=== PATIENT | female | born 1960 | race American Indian/Alaskan Native ===

== ENCOUNTER → 2016-12-18 | Outpatient (CLI) | payer BC, OTHER | END | disposition home or self-care (01) | LOC: PETCFH 08:47 | PROVIDERS: ATTEND Internal Medicine Hematology & Oncology | DX: C50.812 Malignant neoplasm of overlapping sites of left female breast (principal); M89.8X8 Other specified disorders of bone, other site | CPT/HCPCS: 78306; A9503 ==

== ENCOUNTER → 2016-12-18 | Outpatient (CLI) | payer BC, OTHER ==
[~2016-12-18] MED LIST: OMNIPAQUE 350 MG/ML, 100ML BOTTLE ONE
== END | disposition home or self-care (01) ==
LOC: CFH 08:57
PROVIDERS: ATTEND Internal Medicine Hematology & Oncology
DX: C50.812 Malignant neoplasm of overlapping sites of left female breast (principal); J98.4 Other disorders of lung; M48.54XA Collapsed vertebra, not elsewhere classified, thoracic region, initial encounter for fracture; X58.XXXA Exposure to other specified factors, initial encounter; Y93.89 Activity, other specified; Y92.89 Other specified places as the place of occurrence of the external cause; Y99.8 Other external cause status; Z90.12 Acquired absence of left breast and nipple; Z85.3 Personal history of malignant neoplasm of breast
CPT/HCPCS: 71260; 74177; Q9967

== ENCOUNTER → 2017-04-30 | Outpatient (CLI) | payer BC, OTHER | END | disposition home or self-care (01) | LOC: PETCFH 08:25 | PROVIDERS: ATTEND Internal Medicine Hematology & Oncology | DX: C50.812 Malignant neoplasm of overlapping sites of left female breast (principal) | CPT/HCPCS: 78306; A9503 ==

== ENCOUNTER → 2017-04-30 | Outpatient (CLI) | payer BC | END | disposition home or self-care (01) | LOC: CFH 08:34 | PROVIDERS: ATTEND Internal Medicine Hematology & Oncology | DX: M48.54XA Collapsed vertebra, not elsewhere classified, thoracic region, initial encounter for fracture (principal); M89.9 Disorder of bone, unspecified; C50.812 Malignant neoplasm of overlapping sites of left female breast | CPT/HCPCS: 71260; 74177 ==

== ENCOUNTER → 2017-09-05 | Outpatient (CLI) | payer BC, OTHER | END | disposition home or self-care (01) | LOC: CFH 11:23 | PROVIDERS: ATTEND Internal Medicine Hematology & Oncology | DX: C79.51 Secondary malignant neoplasm of bone (principal); M48.54XD Collapsed vertebra, not elsewhere classified, thoracic region, subsequent encounter for fracture with routine healing; C50.812 Malignant neoplasm of overlapping sites of left female breast; Z90.12 Acquired absence of left breast and nipple | CPT/HCPCS: 71260; 74177; Q9967 ==

== ENCOUNTER → 2017-09-05 | Outpatient (CLI) | payer BC, OTHER | END | disposition home or self-care (01) | LOC: PETCFH 11:31 | PROVIDERS: ATTEND Internal Medicine Hematology & Oncology | DX: C50.812 Malignant neoplasm of overlapping sites of left female breast (principal) | CPT/HCPCS: 78306; A9503 ==

== ENCOUNTER → 2018-01-01 | Outpatient (CLI) | payer OTHER | END | disposition home or self-care (01) | LOC: PETCFH 08:04 | PROVIDERS: ATTEND Internal Medicine Hematology & Oncology | DX: C50.812 Malignant neoplasm of overlapping sites of left female breast (principal) | CPT/HCPCS: 78306; A9503 ==

== ENCOUNTER → 2018-05-16 | Outpatient (CLI) | payer MEDICARE, OTHER ==
[~2018-05-16] MED LIST changes: +LETR2.5T PO; +PALB100C PO
== END | disposition home or self-care (01) ==
LOC: RAD 08:18
PROVIDERS: ATTEND Internal Medicine Hematology & Oncology
DX: D73.4 Cyst of spleen (principal); M43.24 Fusion of spine, thoracic region; M89.8X8 Other specified disorders of bone, other site; J98.4 Other disorders of lung; R59.9 Enlarged lymph nodes, unspecified; Z85.3 Personal history of malignant neoplasm of breast
CPT/HCPCS: 71260; 74177; 78306; A9503; Q9967

== ENCOUNTER → 2018-09-04 | Outpatient (CLI) | payer MEDICARE | END | disposition home or self-care (01) | LOC: CFH 12:32 | PROVIDERS: ATTEND Internal Medicine Hematology & Oncology | DX: G95.89 Other specified diseases of spinal cord (principal); M84.48XA Pathological fracture, other site, initial encounter for fracture | CPT/HCPCS: 71260; 74177; Q9967 ==

== ENCOUNTER → 2019-03-11 | Outpatient (CLI) | payer MEDICARE, OTHER ==
[~2019-03-11] VITALS: Ht 162.6 cm; Wt 57.9 kg
[~2019-03-11] MED LIST changes: +LEUPROLIDE 3.75MG SYRINGE KIT IM ONE; -OMNIPAQUE 350 MG/ML, 100ML BOTTLE ONE
[2019-03-11 11:30] VITALS: BP 110/72
== END | disposition home or self-care (01) ==
LOC: INFUSION 11:18
PROVIDERS: ATTEND Internal Medicine Hematology & Oncology
DX: Z51.11 Encounter for antineoplastic chemotherapy (principal); C50.912 Malignant neoplasm of unspecified site of left female breast; C79.51 Secondary malignant neoplasm of bone
CPT/HCPCS: 96402; J1950

== ENCOUNTER 2019-03-17 08:08 | Outpatient (CLI) | payer MEDICARE, OTHER ==
[~2019-03-17 08:08] MED LIST changes: -LEUPROLIDE 3.75MG SYRINGE KIT IM ONE
[2019-03-17] MEDS ORDERED: OMNIPAQUE 350 MG/ML, 100ML BOTTLE ONE (09:15)
== END 2019-03-17 23:59 | disposition home or self-care (01) ==
LOC: PETCFH 08:08
PROVIDERS: ATTEND Internal Medicine Hematology & Oncology
DX: C50.812 Malignant neoplasm of overlapping sites of left female breast (principal); G95.29 Other cord compression; M43.8X4 Other specified deforming dorsopathies, thoracic region; J84.10 Pulmonary fibrosis, unspecified; K76.0 Fatty (change of) liver, not elsewhere classified; G95.89 Other specified diseases of spinal cord; N32.89 Other specified disorders of bladder
CPT/HCPCS: 71260; 74177; 78306; A9503; Q9967

== ENCOUNTER 2019-04-17 13:31 | Outpatient (CLI) | payer MEDICARE, OTHER ==
[~2019-04-17] VITALS: Ht 162.6 cm; Wt 58.1 kg
== END 2019-04-17 23:59 | disposition home or self-care (01) ==
LOC: INFUSION 13:31
PROVIDERS: ATTEND Internal Medicine Hematology & Oncology
DX: Z51.11 Encounter for antineoplastic chemotherapy (principal); C79.51 Secondary malignant neoplasm of bone; C50.812 Malignant neoplasm of overlapping sites of left female breast
CPT/HCPCS: 36415; 36591; 80053; 85025; 86300; 96365; 96402; J1950; J3489

== ENCOUNTER 2019-06-12 10:25 | Outpatient (CLI) | payer MEDICARE, OTHER ==
[~2019-06-12] VITALS: Ht 162.6 cm; Wt 57.3 kg
[2019-06-12] MEDS ORDERED: LEUPROLIDE 3.75MG SYRINGE KIT IM ONE (11:00)
[2019-06-12 13:14] VITALS: BP 103/73
== END 2019-06-12 23:59 | disposition home or self-care (01) ==
LOC: INFUSION 10:25
PROVIDERS: ATTEND Internal Medicine Hematology & Oncology
DX: Z51.11 Encounter for antineoplastic chemotherapy (principal); C50.912 Malignant neoplasm of unspecified site of left female breast; C79.51 Secondary malignant neoplasm of bone
CPT/HCPCS: 96402; J1950; 96372

== ENCOUNTER 2019-07-07 14:08 | Outpatient (CLI) | payer MEDICARE, OTHER ==
[~2019-07-07] VITALS: Ht 162.6 cm; Wt 58.4 kg
[2019-07-07 13:28] LABS: BASOPHILS # (AUTO) 0.06 x10^3/uL (0-0.1); BASOPHILS % (AUTO) 2 % (0-1); EOSINOPHILS # (AUTO) 0.04 x10^3/uL (0-0.4); EOSINOPHILS % (AUTO) 1 % (1-7); LYMPHOCYTES % (AUTO) 32 % (22-44); MD NO; MEAN CORPUSCULAR HEMOGLOBIN 35.2 pg (27.0-34.8); MEAN CORPUSCULAR HGB CONC 33.6 g/dL (32.4-35.8); MEAN CORPUSCULAR VOLUME 104.9 fL (80-100); MEAN PLATELET VOLUME 7.6 fL (7.4-10.4); MONOCYTES # (AUTO) 0.18 x10^3/uL (0.2-0.8); MONOCYTES % (AUTO) 6 % (2-9); NEUTROPHILS # (AUTO) 1.86 x10^3/uL (1.8-6.8); NEUTROPHILS % (AUTO) 59 % (42-75); PLATELET COUNT 193 x10^3/uL (130-400); RED BLOOD COUNT 3.96 x10^6/uL (3.82-5.3); RED CELL DISTRIBUTION WIDTH 14.7 % (9.6-15.2)
[2019-07-07 13:33] LABS: ANION GAP 6 mmol/L (5-15); CALCIUM 9.3 mg/dL (8.5-10.1); CHLORIDE 109 mmol/L (98-107); CREATININE 0.77 mg/dL (0.55-1.02)
[2019-07-07 13:34] LABS: ALANINE AMINOTRANSFERASE 26 U/L (12-78); ALBUMIN 3.9 g/dL (3.4-5.0)
[2019-07-07 13:36] LABS: ALKALINE PHOSPHATASE 72 U/L (45-117); BILIRUBIN,TOTAL 0.3 mg/dL (0.2-1.0); TOTAL PROTEIN 7.1 g/dL (6.4-8.2)
[~2019-07-07 14:08] MED LIST changes: +LEUPROLIDE 3.75MG SYRINGE KIT IM ONE
[2019-07-07] MEDS ORDERED: ZOLEDRONIC ACID 4 MG in SODIUM CHLORIDE 0.9% 100 ML IV ONE (15:00)
[2019-07-07 15:47] VITALS: BP 127/87
== END 2019-07-07 23:59 | disposition home or self-care (01) ==
LOC: INFUSION 14:08
PROVIDERS: ATTEND Internal Medicine Hematology & Oncology
DX: C50.912 Malignant neoplasm of unspecified site of left female breast (principal); C79.51 Secondary malignant neoplasm of bone; Z87.891 Personal history of nicotine dependence
CPT/HCPCS: 36415; 36591; 80053; 83735; 84100; 85025; 96365; 96402; J1950; J3489; 96372

== ENCOUNTER 2019-07-31 15:21 | Outpatient (CLI) | payer MEDICARE, OTHER ==
[~2019-07-31] VITALS: Ht 162.6 cm; Wt 58.6 kg
[2019-07-31 11:18] VITALS: BP 119/75
== END 2019-07-31 23:59 | disposition home or self-care (01) ==
LOC: INFUSION 15:21
PROVIDERS: ATTEND Internal Medicine Hematology & Oncology
DX: Z51.11 Encounter for antineoplastic chemotherapy (principal); C50.912 Malignant neoplasm of unspecified site of left female breast; C79.51 Secondary malignant neoplasm of bone; Z87.891 Personal history of nicotine dependence
CPT/HCPCS: 96402; J1950

== ENCOUNTER → 2019-08-18 | Outpatient (CLI) | payer MEDICARE, OTHER ==
[~2019-08-18] MED LIST changes: -LEUPROLIDE 3.75MG SYRINGE KIT IM ONE; +OMNIPAQUE 350 MG/ML, 100ML BOTTLE ONE
[2019-08-18 12:07] LABS: CREATININE 0.87 mg/dL (0.55-1.02)
== END | disposition home or self-care (01) ==
LOC: RAD 11:07
PROVIDERS: ATTEND Internal Medicine Hematology & Oncology
DX: C79.51 Secondary malignant neoplasm of bone (principal); C50.812 Malignant neoplasm of overlapping sites of left female breast; J94.1 Fibrothorax; Z87.891 Personal history of nicotine dependence
CPT/HCPCS: 36415; 71260; 74177; 78306; 82565; A9503; Q9967

== ENCOUNTER → 2019-08-20 | Outpatient (CLI) | payer MEDICARE, OTHER ==
[~2019-08-20] MED LIST changes: +GADOTERATE 7.5 MMOL/15 ML SYR ONE; -OMNIPAQUE 350 MG/ML, 100ML BOTTLE ONE
== END | disposition home or self-care (01) ==
LOC: CFH 13:17
PROVIDERS: ATTEND Registered Nurse
DX: C79.9 Secondary malignant neoplasm of unspecified site (principal); Z85.3 Personal history of malignant neoplasm of breast; Z85.830 Personal history of malignant neoplasm of bone; M47.12 Other spondylosis with myelopathy, cervical region; Z88.2 Allergy status to sulfonamides; Z87.891 Personal history of nicotine dependence
CPT/HCPCS: 70553; 72156; A9575

== ENCOUNTER 2019-08-21 12:35 | Outpatient (CLI) | payer MEDICARE, OTHER ==
[~2019-08-21 12:35] MED LIST changes: -GADOTERATE 7.5 MMOL/15 ML SYR ONE
[2019-08-21] MEDS ORDERED: GADOTERATE 7.5 MMOL/15 ML SYR ONE (13:30)
== END 2019-08-21 23:59 | disposition home or self-care (01) ==
LOC: CFH 12:35
PROVIDERS: ATTEND Registered Nurse
DX: M48.54XA Collapsed vertebra, not elsewhere classified, thoracic region, initial encounter for fracture (principal); M50.03 Cervical disc disorder with myelopathy, cervicothoracic region; C50.919 Malignant neoplasm of unspecified site of unspecified female breast; C79.51 Secondary malignant neoplasm of bone; M47.816 Spondylosis without myelopathy or radiculopathy, lumbar region; M51.26 Other intervertebral disc displacement, lumbar region; M48.061 Spinal stenosis, lumbar region without neurogenic claudication
CPT/HCPCS: 72157; 72158; A9575

== ENCOUNTER 2019-08-28 05:53 | Outpatient (CLI) | payer MEDICARE, OTHER ==
[~2019-08-28] VITALS: Ht 162.6 cm; Wt 59.9 kg
[2019-08-28 10:30] VITALS: BP 102/65
[2019-08-28] MEDS ORDERED: LEUPROLIDE 3.75MG SYRINGE KIT IM ONE (11:00)
== END 2019-08-28 23:59 | disposition home or self-care (01) ==
LOC: INFUSION 05:53
PROVIDERS: ATTEND Internal Medicine Hematology & Oncology
DX: Z51.11 Encounter for antineoplastic chemotherapy (principal); C50.812 Malignant neoplasm of overlapping sites of left female breast; C79.51 Secondary malignant neoplasm of bone; M48.061 Spinal stenosis, lumbar region without neurogenic claudication; Z87.891 Personal history of nicotine dependence
CPT/HCPCS: 96402; J1950

== ENCOUNTER 2019-09-25 12:23 | Outpatient (CLI) | payer MEDICARE, OTHER ==
[~2019-09-25] VITALS: Ht 162.6 cm; Wt 59.4 kg
[2019-09-25 11:30] VITALS: BP 99/57
[2019-09-25 12:00] LABS: MEAN CORPUSCULAR HEMOGLOBIN 35.8 pg (27.0-34.8); MEAN CORPUSCULAR HGB CONC 33.9 g/dL (32.4-35.8); MEAN CORPUSCULAR VOLUME 105.7 fL (80-100); MEAN PLATELET VOLUME 7.4 fL (7.4-10.4); PLATELET COUNT 174 x10^3/uL (130-400); RED BLOOD COUNT 3.87 x10^6/uL (3.82-5.3); RED CELL DISTRIBUTION WIDTH 14.3 % (9.6-15.2)
[2019-09-25 12:38] LABS: ALBUMIN 3.8 g/dL (3.4-5.0); ANION GAP 9 mmol/L (5-15); CALCIUM 9.6 mg/dL (8.5-10.1); CHLORIDE 110 mmol/L (98-107)
[2019-09-25 12:42] LABS: ALANINE AMINOTRANSFERASE 29 U/L (12-78); ALKALINE PHOSPHATASE 61 U/L (45-117); BILIRUBIN,TOTAL 0.7 mg/dL (0.2-1.0); CREATININE 0.94 mg/dL (0.55-1.02)
[2019-09-25 12:47] LABS: MD SCAN
[2019-09-25 12:48] LABS: BASOPHILS # (AUTO) 0.04 x10^3/uL (0-0.1); BASOPHILS % (AUTO) 2 % (0-1); EOSINOPHILS # (AUTO) 0.01 x10^3/uL (0-0.4); EOSINOPHILS % (AUTO) 1 % (1-7); LYMPHOCYTES # (AUTO) 0.79 x10^3/uL (1-3.4); LYMPHOCYTES % (AUTO) 32 % (22-44); MONOCYTES # (AUTO) 0.28 x10^3/uL (0.2-0.8); MONOCYTES % (AUTO) 11 % (2-9); NEUTROPHILS # (AUTO) 1.38 x10^3/uL (1.8-6.8); NEUTROPHILS % (AUTO) 55 % (42-75)
[2019-09-25] MEDS ORDERED: LEUPROLIDE 3.75MG SYRINGE KIT IM ONE (13:00)
[2019-09-25] MEDS ORDERED: ZOLEDRONIC ACID 4 MG in SODIUM CHLORIDE 0.9% 100 ML IVPB ONE (13:30)
== END 2019-09-25 23:59 | disposition home or self-care (01) ==
LOC: INFUSION 12:23
PROVIDERS: ATTEND Internal Medicine Hematology & Oncology
DX: Z51.11 Encounter for antineoplastic chemotherapy (principal); C50.812 Malignant neoplasm of overlapping sites of left female breast; C79.51 Secondary malignant neoplasm of bone; M48.061 Spinal stenosis, lumbar region without neurogenic claudication; M50.03 Cervical disc disorder with myelopathy, cervicothoracic region; Z87.891 Personal history of nicotine dependence
CPT/HCPCS: 36415; 36591; 80053; 83735; 84100; 85025; 96365; 96402; J1950; J3489

== ENCOUNTER → 2019-10-23 | Outpatient (CLI) | payer MEDICARE, OTHER ==
[~2019-10-23] VITALS: Ht 162.6 cm; Wt 59.0 kg
[~2019-10-23] MED LIST changes: -LETR2.5T PO; +LETR2.5T3 PO; +LEUPROLIDE 3.75MG SYRINGE KIT IM ONE
[2019-10-23 16:16] VITALS: BP 97/59
== END | disposition home or self-care (01) ==
LOC: INFUSION 11:27
PROVIDERS: ATTEND Internal Medicine Hematology & Oncology
DX: Z51.11 Encounter for antineoplastic chemotherapy (principal); C50.912 Malignant neoplasm of unspecified site of left female breast; C79.51 Secondary malignant neoplasm of bone; M48.061 Spinal stenosis, lumbar region without neurogenic claudication; Z87.891 Personal history of nicotine dependence
CPT/HCPCS: 96402; J1950

== ENCOUNTER 2019-11-20 07:58 | Outpatient (CLI) | payer MEDICARE, OTHER ==
[~2019-11-20] VITALS: Ht 162.6 cm; Wt 59.4 kg
[~2019-11-20 07:58] MED LIST changes: -LEUPROLIDE 3.75MG SYRINGE KIT IM ONE
[2019-11-20 11:25] VITALS: BP 104/69
[2019-11-20] MEDS ORDERED: LEUPROLIDE 3.75MG SYRINGE KIT IM ONE (11:30)
== END 2019-11-20 23:59 | disposition home or self-care (01) ==
LOC: INFUSION 07:58
PROVIDERS: ATTEND Internal Medicine Hematology & Oncology
DX: Z51.11 Encounter for antineoplastic chemotherapy (principal); C50.912 Malignant neoplasm of unspecified site of left female breast; C79.51 Secondary malignant neoplasm of bone; Z87.891 Personal history of nicotine dependence; M48.061 Spinal stenosis, lumbar region without neurogenic claudication
CPT/HCPCS: 96402; J1950

== ENCOUNTER 2019-12-18 11:29 | Outpatient (CLI) | payer MEDICARE, OTHER ==
[~2019-12-18] VITALS: Ht 162.6 cm; Wt 58.8 kg
[2019-12-18 12:05] LABS: MEAN CORPUSCULAR HEMOGLOBIN 35.2 pg (27.0-34.8); MEAN CORPUSCULAR HGB CONC 33.9 g/dL (32.4-35.8); MEAN CORPUSCULAR VOLUME 103.9 fL (80-100); MEAN PLATELET VOLUME 7.1 fL (7.4-10.4); PLATELET COUNT 156 x10^3/uL (130-400); RED BLOOD COUNT 4.21 x10^6/uL (3.82-5.3); RED CELL DISTRIBUTION WIDTH 14.9 % (9.6-15.2)
[2019-12-18 12:15] LABS: ALANINE AMINOTRANSFERASE 24 U/L (12-78); ANION GAP 8 mmol/L (5-15); CALCIUM 9.7 mg/dL (8.5-10.1); CHLORIDE 109 mmol/L (98-107)
[2019-12-18 12:18] LABS: ALKALINE PHOSPHATASE 69 U/L (45-117); BILIRUBIN,TOTAL 0.3 mg/dL (0.2-1.0)
[2019-12-18] MEDS ORDERED: LEUPROLIDE 3.75MG SYRINGE KIT IM ONE (12:30)
[2019-12-18] MEDS ORDERED: ZOLEDRONIC ACID 4 MG in SODIUM CHLORIDE 0.9% 100 ML IVPB ONE (12:30)
[2019-12-18 12:34] LABS: BASOPHILS # (AUTO) 0.03 x10^3/uL (0-0.1); BASOPHILS % (AUTO) 1 % (0-1); EOSINOPHILS # (AUTO) 0.03 x10^3/uL (0-0.4); EOSINOPHILS % (AUTO) 1 % (1-7); LYMPHOCYTES # (AUTO) 0.88 x10^3/uL (1-3.4); LYMPHOCYTES % (AUTO) 30 % (22-44); MD SCAN; MONOCYTES # (AUTO) 0.33 x10^3/uL (0.2-0.8); MONOCYTES % (AUTO) 11 % (2-9); NEUTROPHILS # (AUTO) 1.66 x10^3/uL (1.8-6.8); NEUTROPHILS % (AUTO) 56 % (42-75)
== END 2019-12-18 23:59 | disposition home or self-care (01) ==
LOC: INFUSION 11:29
PROVIDERS: ATTEND Internal Medicine Hematology & Oncology
DX: Z51.11 Encounter for antineoplastic chemotherapy (principal); C50.912 Malignant neoplasm of unspecified site of left female breast; C79.51 Secondary malignant neoplasm of bone; Z87.891 Personal history of nicotine dependence
CPT/HCPCS: 36415; 36591; 80053; 83735; 84100; 85025; 96365; 96402; J1950; J3489

== ENCOUNTER → 2020-03-14 | Outpatient (CLI) | payer MEDICARE, OTHER ==
[~2020-03-14] MED LIST changes: +OMNIPAQUE 350 MG/ML, 100ML BOTTLE ONE
== END | disposition home or self-care (01) ==
LOC: RAD 09:25
PROVIDERS: ATTEND Internal Medicine Hematology & Oncology
DX: C50.812 Malignant neoplasm of overlapping sites of left female breast (principal); C50.912 Malignant neoplasm of unspecified site of left female breast; J84.10 Pulmonary fibrosis, unspecified; C79.51 Secondary malignant neoplasm of bone; M89.9 Disorder of bone, unspecified
CPT/HCPCS: 71260; 74177; 78306; A9503; Q9967

== ENCOUNTER → 2020-08-25 | Outpatient (CLI) | payer MEDICARE, OTHER | END | disposition home or self-care (01) | LOC: RAD 11:20 | PROVIDERS: ATTEND Internal Medicine Hematology & Oncology | DX: C79.51 Secondary malignant neoplasm of bone (principal); C50.812 Malignant neoplasm of overlapping sites of left female breast; C50.912 Malignant neoplasm of unspecified site of left female breast; J84.10 Pulmonary fibrosis, unspecified; M48.54XA Collapsed vertebra, not elsewhere classified, thoracic region, initial encounter for fracture; M47.814 Spondylosis without myelopathy or radiculopathy, thoracic region | CPT/HCPCS: 71260; 74177; 78306; A9503; Q9967 ==

== ENCOUNTER → 2021-02-16 | Outpatient (CLI) | payer MEDICARE, OTHER | END | disposition home or self-care (01) | LOC: RAD 10:47 | PROVIDERS: ATTEND Internal Medicine Hematology & Oncology | DX: C79.51 Secondary malignant neoplasm of bone (principal); C50.912 Malignant neoplasm of unspecified site of left female breast; C50.812 Malignant neoplasm of overlapping sites of left female breast; J84.10 Pulmonary fibrosis, unspecified; M25.80 Other specified joint disorders, unspecified joint; Z90.12 Acquired absence of left breast and nipple | CPT/HCPCS: 71260; 74177; 78306; A9503; Q9967 ==